=== PATIENT | male | born 1990 | race Hispanic/Latino ===

== ENCOUNTER 2018-01-26 22:30 | Emergency (ER) | payer SELFPAY ==
--- NOTE | 2018-01-26 23:36 | RAD ---
THREE VIEWS LEFT ANKLE 01/26/18 HISTORY: Left ankle pain. 27-year-old who was in police custody stepped off of curb the wrong way today. AP, lateral and oblique views left ankle obtained. Some soft tissue swelling is seen over the lateral aspect of the left ankle. No evidence of acute fractures, subluxations or bony lesions seen. IMPRESSION: Lateral ankle soft tissue swelling. No evidence of acute bony fractures or lesions seen. POS: [facility]
[2018-01-26] MEDS ORDERED: Ziprasidone 20 MG CAP PO SCH (23:45)
--- NOTE | 2018-01-27 00:02 | RAD ---
THREE VIEWS LEFT FOOT: 01/26/18 HISTORY: 27- year-old with history of left foot pain. AP, lateral and oblique views left foot obtained. Three views left foot demonstrates no evidence of left foot fractures, subluxations or bony lesions. IMPRESSION: Normal three views left foot. POS: [facility]
== END 2018-01-27 00:24 | disposition home or self-care (01) ==
LOC: ERS 22:30
DX: S93.402A Sprain of unspecified ligament of left ankle, initial encounter (principal); I10 Essential (primary) hypertension; F32.9 Major depressive disorder, single episode, unspecified; F17.210 Nicotine dependence, cigarettes, uncomplicated; Z79.899 Other long term (current) drug therapy; W22.8XXA Striking against or struck by other objects, initial encounter